=== PATIENT | female | born 1990 | race Caucasian/White ===

== ENCOUNTER 2020-04-06 09:54 | Outpatient (REF) | payer OTHER, SELFPAY ==
[2020-04-06 12:22] LABS: Hemoglobin 13.8 g/dl (12.0-16.0)
[2020-04-06 12:24] LABS: Hematocrit 42.1 % (37-47); Mean Corpuscular HGB Conc 32.8 g/dl (31.0-35.0); Mean Corpuscular Hemoglobin 33.1 pg (27.0-33.0); Mean Platelet Volume 13.8 fL (9.4-12.3); PLT CLUMP 1; Red Blood Count 4.17 X10*6/uL (4.20-5.50); Red Cell Distribution Width 12.5 % (11.0-16.0)
[2020-04-06 12:29] LABS: PLT ABN DIST 1
[2020-04-06 12:44] LABS: Alanine Aminotransferase 16 U/L (0-31); Aspartate Amino Transferase 14 U/L (5-31); Cholesterol 148 mg/dL; Glucose Fasting 92 mg/dL (60-99); HDL Cholesterol 47 mg/dL; LDL Cholesterol Calculated 86 mg/dl; Triglycerides 79 mg/dL
[2020-04-06 13:42] LABS: White Blood Count 10.1 X10*3/uL (4.8-10.8)
== END 2020-04-06 09:55 | disposition home or self-care (01) ==
LOC: HO.LAB 09:54
PROVIDERS: PCP Internal Medicine; Visit Provider Internal Medicine
DX: Z00.01 Encounter for general adult medical examination with abnormal findings (principal)
CPT/HCPCS: 36415; 80061; 82947; 84450; 84460; 85027

== ENCOUNTER 2020-06-03 15:33 | Outpatient (REF) | payer OTHER, SELFPAY | END 2020-06-03 15:34 | disposition home or self-care (01) | LOC: HO.LAB 15:33 | PROVIDERS: Visit Provider Internal Medicine | DX: Z20.828 Contact with and (suspected) exposure to other viral communicable diseases (principal) | CPT/HCPCS: C9803; U0003 ==

== ENCOUNTER 2020-07-28 13:23 | Outpatient (REF) | payer OTHER, SELFPAY ==
[2020-07-28 16:40] LABS: Hemoglobin 14.2 g/dl (12.0-16.0); MANUAL DIFF FLAG SCAN; Neutrophils Absolute Auto 5.5 X10*3/uL (2.0-8.3); SCAN SMEAR FLAG 1
[2020-07-28 16:41] LABS: Basophils Percent Auto 0.4 % (0-2); Eosinophils Absolute Auto 0.1 X10*3/uL (0.0-0.4); Eosinophils Percent Auto 0.7 % (0-4); Hematocrit 44.3 % (37-47); Imm Gran Abs Auto 0.04 X10*3/uL (0.00-0.03); Imm Gran Pct Auto 0.4 % (0.0-0.4); Lymphocytes Absolute Auto 2.8 X10*3/uL (1.2-4.9); Lymphocytes Percent Auto 31.5 % (20-40); Mean Corpuscular HGB Conc 32.1 g/dl (31.0-35.0); Mean Corpuscular Hemoglobin 33.1 pg (27.0-33.0); Mean Corpuscular Volume 103.3 fL (80-98); Monocytes Absolute Auto 0.5 X10*3/uL (0.1-1.2); Monocytes Percent Auto 5.4 % (2-11); Neutrophils Percent Auto 61.6 % (45-73); PLT CLUMP 1; Red Blood Count 4.29 X10*6/uL (4.20-5.50); Red Cell Distribution Width 12.8 % (11.0-16.0)
[2020-07-28 16:44] LABS: PLT ABN DIST 1
[2020-07-28 17:54] LABS: SLIDE REVIEW VERIFIED
[2020-07-29 04:20] LABS: Monotest Negative (Negative)
[2020-07-29 05:22] LABS: EBV-NA IgG Index >600.00 U/mL; EBV-VCA IgG Ab >750.00 U/mL; EBV-VCA IgM Ab <36.00 U/mL
== END 2020-07-28 13:24 | disposition home or self-care (01) ==
LOC: HO.HMGCLDS 13:23
PROVIDERS: PCP Internal Medicine; Visit Provider Nurse Practitioner Family
DX: D75.89 Other specified diseases of blood and blood-forming organs (principal); J02.9 Acute pharyngitis, unspecified
CPT/HCPCS: 36415; 85025; 86308; 86664; 86665; 87071; 87147

== ENCOUNTER 2020-10-13 09:38 | Outpatient (REF) | payer OTHER, SELFPAY ==
[2020-10-13 11:33] LABS: Basophils Percent Auto 0.4 % (0-2); Eosinophils Absolute Auto 0.1 X10*3/uL (0.0-0.4); Eosinophils Percent Auto 0.6 % (0-4); Hematocrit 42.6 % (37-47); Hemoglobin 13.9 g/dl (12.0-16.0); Imm Gran Abs Auto 0.04 X10*3/uL (0.00-0.03); Imm Gran Pct Auto 0.4 % (0.0-0.4); Lymphocytes Absolute Auto 2.1 X10*3/uL (1.2-4.9); Lymphocytes Percent Auto 19.8 % (20-40); MANUAL DIFF FLAG SCAN; Mean Corpuscular HGB Conc 32.6 g/dl (31.0-35.0); Mean Corpuscular Hemoglobin 33.2 pg (27.0-33.0); Mean Corpuscular Volume 101.7 fL (80-98); Mean Platelet Volume 13.3 fL (9.4-12.3); Monocytes Absolute Auto 0.4 X10*3/uL (0.1-1.2); Monocytes Percent Auto 4.2 % (2-11); Neutrophils Absolute Auto 7.7 X10*3/uL (2.0-8.3); Neutrophils Percent Auto 74.6 % (45-73); PLT CLUMP 1; Red Blood Count 4.19 X10*6/uL (4.20-5.50); Red Cell Distribution Width 12.5 % (11.0-16.0); SCAN SMEAR FLAG 1
[2020-10-13 11:59] LABS: White Blood Count 10.3 X10*3/uL (4.8-10.8)
[2020-10-13 12:02] LABS: SLIDE REVIEW VERIFIED
[2020-10-13 12:06] LABS: Alanine Aminotransferase 26 U/L (0-31); Albumin Level 4.5 g/dL (3.5-5.0); Alkaline Phosphatase 79 U/L (39-117); Anion Gap 14 (12-20); Aspartate Amino Transferase 19 U/L (5-31); Bilirubin Total 0.5 mg/dL (0.0-1.0); Blood Urea Nitrogen 12 mg/dL (9-16); Calcium 9.8 mg/dL (8.4-10.2); Carbon Dioxide 25 mmol/L (22-29); Chloride 107 mmol/L (96-108); Estimated Glomerular Filt Rate > 60; Glucose Fasting 90 mg/dL (60-99); Potassium 4.5 mmol/L (3.3-5.1); Sodium 141 mmol/L (135-145); Total Protein 7.6 g/dL (6.5-8.0)
[2020-10-13 12:14] LABS: HCG Quantitative < 2 mIU/mL; TSH reflex Free T4 0.47 uIU/mL (0.32-4.0)
== END 2020-10-13 09:39 | disposition home or self-care (01) ==
LOC: HO.HMGCLDS 09:38
PROVIDERS: Visit Provider Hospitalist
DX: R53.83 Other fatigue (principal)
CPT/HCPCS: 36415; 80053; 84443; 84702; 85025

== ENCOUNTER → 2020-10-26 11:16 | Outpatient (BNVA) | payer OTHER, SELFPAY | PROVIDERS: Visit Provider Advanced Practice Midwife ==

== ENCOUNTER → 2020-12-06 11:18 | Outpatient (BNVA) | payer OTHER, SELFPAY | PROVIDERS: PCP Hospitalist; Visit Provider Advanced Practice Midwife ==

== ENCOUNTER 2022-06-23 11:02 | Outpatient (REF) | payer OTHER, SELFPAY ==
[2022-06-23 14:11] LABS: MANUAL DIFF FLAG NO
[2022-06-23 14:19] LABS: Basophils Absolute Auto 0.1 X10*3/uL (0.0-0.2); Basophils Percent Auto 0.6 % (0-2); Eosinophils Absolute Auto 0.1 X10*3/uL (0.0-0.4); Eosinophils Percent Auto 0.7 % (0-4); Hematocrit 39.9 % (37.0-47.0); Hemoglobin 13.4 g/dl (12.0-16.0); Imm Gran Abs Auto 0.04 X10*3/uL (0.00-0.03); Imm Gran Pct Auto 0.4 % (0.0-0.4); Lymphocytes Absolute Auto 2.9 X10*3/uL (1.2-4.9); Lymphocytes Percent Auto 26.6 % (20-40); Mean Corpuscular HGB Conc 33.6 g/dl (31.0-35.0); Mean Corpuscular Hemoglobin 33.7 pg (27.0-33.0); Mean Corpuscular Volume 100.3 fL (80.0-98.0); Mean Platelet Volume 12.9 fL (9.4-12.3); Monocytes Absolute Auto 0.5 X10*3/uL (0.1-1.2); Monocytes Percent Auto 4.9 % (2-11); Neutrophils Absolute Auto 7.3 x10*3/uL (2.0-8.3); Neutrophils Percent Auto 66.8 % (45-73); Platelet Count 113 X10*3/uL (160-400); Red Blood Count 3.98 X10*6/uL (4.20-5.50); Red Cell Distribution Width 12.6 % (11.0-16.0); White Blood Count 10.9 X10*3/uL (4.8-10.8)
[2022-06-23 14:52] LABS: Alanine Aminotransferase 15 U/L (0-31); Aspartate Amino Transferase 15 U/L (5-31); Cholesterol 159 mg/dL; HDL Cholesterol 44 mg/dL; LDL Cholesterol Calculated 102 mg/dl; Triglycerides 68 mg/dL; Vitamin D 25-OH Total 17.2 ng/mL (>30)
[2022-06-28 19:18] LABS: HPV mRNA E6/E7 rflx Not Detected (Not Detected)
== END 2022-06-23 11:03 | disposition home or self-care (01) ==
LOC: HO.HMGCLDS 11:02
PROVIDERS: PCP Internal Medicine; Visit Provider Internal Medicine
DX: Z00.01 Encounter for general adult medical examination with abnormal findings (principal); Z12.4 Encounter for screening for malignant neoplasm of cervix; Z11.51 Encounter for screening for human papillomavirus (HPV)
CPT/HCPCS: 36415; 80061; 82306; 84450; 84460; 85025; 87624; 88142

== ENCOUNTER 2023-04-25 20:05 | Emergency (ER) | payer OTHER, SELFPAY ==
[2023-04-25 20:35] VITALS: BP 134/71; PULSE 75; RESP 20; TEMP 36.8; O2SAT 97; BMI 29.5
--- NOTE | 2023-04-25 20:38 | ED_ITS ---
HPI - General Adult General Chief complaint: Animal Bite Stated complaint: dog bite Time Seen by Provider: 04/25/23 21:01 Source: patient Mode of arrival: ambulatory Limitations: no limitations History of Present Illness HPI narrative: Patient comes to the emergency room complaining of dog bite. According to the patient, this was a friend's dog. Patient went to use the restroom, the dog was in the hallway in the house, patient thought that the dog is friendly, decided bit him but the dog bit her. Patient states that she does not remember when she had her Tdap. Patient's dog is fully immunized. Related Data Home Medications Medication Instructions Recorded Confirmed adapalene 0.1 % topical gel 1 appl topical BEDTIME 06/23/22 09/26/22 (Differin) Previous Rx's Medication Instructions Recorded cholecalciferol (vitamin D3) 1,250 1,250 mcg PO QWEEK 3 months #13 06/23/22 mcg (50,000 unit) capsule caps amoxicillin 875 mg-potassium 1 tab PO Q12H 7 days #14 tabs 09/26/22 clavulanate 125 mg tablet prednisone 20 mg tablet 40 mg (2 x 20 mg) PO DAILY 4 days 09/26/22 #8 tabs amoxicillin 500 mg-potassium 1 tab PO BID #13 tabs 04/25/23 clavulanate 125 mg tablet (Augmentin) ibuprofen 600 mg tablet 600 mg PO QID PRN fever or pain 04/25/23 #14 tabs Allergies Allergy/AdvReac Type Severity Reaction Status Date / Time No Known Allergies Allergy Verified 04/25/23 20:35 Review of Systems Review of Systems: Constitutional : No Weight loss, No Fever, No Chills, No Night Sweats, No Fatigue, No Malaise ENT/Mouth : No Hearing loss, No Ear Pain, No Nasal Congestion, No Sinus Pain, No Hoarseness, No sore throat, No Rhinorrhea, No Swallowing Difficulty Eyes: No Eye Pain, No Swelling, No Redness, No Foreign Body, No Discharge, No Vision Changes Cardiovascular : No Chest Pain, No SOB, No Dyspnea on Exertion, No Orthopnea, No Edema, No Palpitations Respiratory : No Cough, No Sputum, No Wheezing, No Smoke Exposure, No Dyspnea Gastrointestinal : No Nausea, No Vomiting, No Diarrhea, No Constipation, No abdominal Pain, No Hematochezia, No Melena Genitourinary : no irregular bleeding, No Dysuria, No Urinary Frequency, No Hematuria, No Urinary Incontinence, No Urgency, No Flank Pain, No Urinary Flow Changes, No Hesitancy Musculoskeletal : No joint pain, No Myalgias, No Joint Swelling Skin : Complaining of a dog bite to the right thumb Neuro : No Weakness, No Numbness, No Paresthesias, No Loss of Consciousness, No Dizziness, No Headache Psych : No Anxiety/Panic, No Depression, No SI/HI/AH/VH, No Social Issues, Heme/Lymph: No Bruising, No Bleeding,No Lymphadenopathy Endocrine : No Polyuria, No Polydipsia, No Temperature Intolerance [facility], [facility] Past Medical History Medical History Cigarette smoker one half pack a day or less Cervical cancer screening Acne Annual visit for general adult medical examination with abnormal findings Recurrent streptococcal tonsillitis Allergic rhinitis Genital herpes Surgical History History of incision and drainage Hx of LASIK Family History Family History Father Colon cancer Substance use disorder Mother Asthma Sister Cervical cancer Brother No problems noted. Sister No problems noted. Sister No problems noted. Social History Social History Housing: Apartment Alcohol intake: current Alcohol intake frequency: holidays/special occasions only Patient Tobacco Use Status: Current everyday Tobacco user Cigarette Packs Per Day: 0.5 Cigarettes Per Day: 10 Years Smoked: 13 Smoked in Last 30 Days: No e-Cigarette/Vaping Use: Never Used Advance Directives: No Advance Directives Information Provided: Yes Current occupational status: employed Sexual orientation: Straight/Heterosexual Gender identity: Female Cognitive needs: No Hearing needs: No Vision needs: No Physical Exam ED Vital Signs: Vital Signs - 24 hr 04/25/23 20:35 Temperature 98.3 F Pulse Rate 75 Respiratory Rate 20 Blood Pressure 134/71 Pulse Oximetry 97 Oxygen Delivery Method Nasal Cannula BMI result Body Mass Index 29.5 Const Other: Appearance: Alert. Oriented X3. No acute distress. Eyes: Pupils equal, round and reactive to light. ENT: Pharynx normal. Neck: Normal inspection. Neck supple. No lymph nodes noted. No crepitus CVS: Normal heart rate and rhythm. Pulses normal. Normal S1 and S2 Respiratory: No respiratory distress. Breath sounds normal. No Wheezing. No rales Abdomen: Soft and nontender. No rigidity. No distention. Skin: Skin warm and dry. Normal skin color. patient has 2 puncture wounds to the right thumb Extremities: No lower extremity edema. No Lacerations. No Rash Neuro: Oriented X 3. No motor deficit. No sensory deficit. Moving all extremities. No slurred speech. CN 2 through 12 grossly intact Psych: calm, cooperative, normal affect Course Course Course Narrative: RME: 32 yold female presents to the ED for right thumb dog bite. Dog belongs to a friend. Friend said dog uptodate witih rabies. unknown of last tdap Medications Administered Discontinued Medications Generic Name Dose Route Start Last Admin Trade Name Freq PRN Reason Stop Dose Admin Amoxicillin/Clavulanate Potassium 875 mg 04/25/23 21:13 04/25/23 21:21 Amoxicillin/Potassium Clav 875 Mg Tablet PO 04/25/23 21:14 875 mg ONCE ONE Administration Diphtheria/Tetanus/Acell Pertussis 0.5 ml 04/25/23 21:13 04/25/23 21:21 Diphth,Pertus(Acell),Tet Adult 0.5 Ml Syringe IM 04/25/23 21:14 0.5 ml .ONCE ONE Administration Medical Decision Making Medical Decision Making [facility] Narrative: -dog is known to be fully immunized -patient receive a dose of Tdap in the emergency room in 1st dose of Augmentin. -I discussed with the patient when to return to the emergency room p.r.n. infection Differential Diagnosis Differential Diagnoses: The differential diagnosis associated with the presentation includes (Dog bite, puncture wound) Discharge Plan Discharge Clinical Impression: Dog bite Patient Disposition: Home, Self-Care Instructions: Animal Bite (ED) Additional Instructions: Please follow-up with your primary care physician tomorrow. If you have any worsening or new symptoms, please return to the emergency room or call 911 Prescriptions: New amoxicillin-pot clavulanate [Augmentin] 500-125 mg tablet 1 tab PO BID Qty: 13 0RF ibuprofen 600 mg tablet 600 mg PO QID PRN (Reason: fever or pain) Qty: 14 0RF No Action cholecalciferol (vitamin D3) 1,250 mcg (50,000 unit) capsule 1,250 mcg PO QWEEK 90 Days Qty: 13 0RF prednisone 20 mg tablet 40 mg PO DAILY 4 Days Qty: 8 0RF amoxicillin-pot clavulanate 875-125 mg tablet 1 tab PO Q12H 7 Days Qty: 14 0RF adapalene [Differin] 0.1 % gel 1 appl topical BEDTIME Interventions: ED Discharge Assessment Last Done: 04/25/23 21:32 Discharge Date/Time: 04/25/23 21:40
[2023-04-25] MEDS: Diphth,Pertus(ACell),Tet Adult 0.5 ML SYRINGE IM (21:21)
[2023-04-25] MEDS: Amoxicillin/Potassium Clav 875 MG TABLET PO (21:21)
== END 2023-04-25 21:40 | disposition home or self-care (01) ==
LOC: HO.ED 21:39
PROVIDERS: Emergency Provider Emergency Medicine; PCP Internal Medicine
DX: S61.051A Open bite of right thumb without damage to nail, initial encounter (principal); W54.0XXA Bitten by dog, initial encounter; Y93.89 Activity, other specified; Y92.9 Unspecified place or not applicable; Y99.9 Unspecified external cause status
CPT/HCPCS: 90471; 90715; 99284

== ENCOUNTER 2023-06-26 08:04 | Outpatient (AMB) | payer OTHER, SELFPAY ==
[2023-06-26 08:07] VITALS: BP 108/74; PULSE 98; O2SAT 98; BMI 31.2
--- NOTE | 2023-06-26 08:07 | A.OFFPC_ITS ---
Vital Signs 06/26/23 08:07 Height 5 ft 4 in Weight 182 lb BMI 31.2 BP 108/74 Blood Pressure Location Rt brachial Position Sitting Pulse 98 Pulse Source Pulse Oximeter Pulse Oximetry (%) 98 Oxygen Delivery Method Room Air Intake Visit Reasons: Physical exam Intake Note: Pt is here today for her PE Is last menstrual period known: Yes Last menstrual period: 06/19/23 Allergies No Known Allergies Allergy (Verified 06/26/23 08:25) Medication List - Last Reconciled 06/26/23 by Indu Arriaga MD No Known Home Meds Tobacco use date assessed: 06/26/23 Dental Screening Dental Screen Date: 06/26/23 Did you have a dental visit in the last 12 months?: Yes Did you have a dental problem in the last 6 months where you did not have access to dental care?: No Was dental information given to patient?: Patient has dentist HPI Physical exam HPI Details 32-year-old lady with obesity, and seaso nal allergies, here today for her physical exam. She is up-to-date with her cervical cancer screening, last done 2021 with unremarkable findings except for presence of active vaginosis which was already treated. She has had her COVID vaccination and booster, as well as her flu shot , and is up-to-date with her Tdap.. Quit smoking 7 months ago, cold turkey. She however has gained some weight since last visit, has been eating a lot of junk food [facility] Medical History (Updated 06/26/23 @ 08:39 by Indu Arriaga MD) Obesity (BMI 30.0-34.9) Former moderate cigarette smoker (10-19 per day) Cervical cancer screening Acne Annual visit for general adult medical examination with abnormal findings Recurrent streptococcal tonsillitis Allergic rhinitis Genital herpes Surgical History History of incision and drainage Hx of LASIK Family History Father Colon cancer Substance use disorder Mother Asthma Sister Cervical cancer Brother No problems noted. Sister No problems noted. Sister No problems noted. Social History Housing: Apartment Alcohol intake: current Alcohol intake frequency: holidays/special occasions only Patient Tobacco Use Status: Former Tobacco user Cigarette Packs Per Day: 0.5 Cigarettes Per Day: 10 Years Smoked: 13 e-Cigarette/Vaping Use: Never Used Current occupational status: employed Sexual orientation: Straight/Heterosexual Gender identity: Female Cognitive needs: No Hearing needs: No Vision needs: No Female Reproductive History Menstrual Date of last menstrual period: 06/19/23 Questionnaire PHQ-9 Over the last 2 weeks, how often have you been bothered by any of the following problems? 1. Little interest or pleasure in doing things: not at all 2. Feeling down, depressed, or hopeless: not at all 3. Trouble falling or staying asleep, or sleeping too much: not at all 4. Feeling tired or having little energy: not at all 5. Poor appetite or overeating: not at all 6. Feeling bad about yourself - or that you are a failure or have let yourself or your family down: not at all 7. Trouble concentrating on things, such as reading the newspaper or watching television: not at all 8. Moving or speaking so slowly that other people could have noticed. Or the opposite - being so fidgety or restless that you have been moving around a lot more than usual: not at all 9. Thoughts that you would be better off or of hurting yourself in some way: not at all Total score: 0 Depression Screening Interpretation: Negative Depression Screening Done: Yes 78751 - PHQ-9 Billing: Yes Source: Developed by Drs. Aly Gilman, Rohini Gao, Richard Garnica and colleagues, with an educational toni from [employer]. Thrive Questionnaire Date Thrive assessed: 06/26/23 I am a: Patient What is your living situation today?: I have a steady place to live Within the past 12 months, did the food you bought not last and you didn't have the money to get more?: Never true Within the past 12 months, did you worry whether your food would run out before you got money to buy more?: Never true Do you have trouble paying for medicines?: No Do you have trouble getting transportation to medical appointments?: No Do you have trouble paying your heating and electricity bill?: No Do you have trouble taking care of your child, family member or friend?: No Do you have trouble with day-to-day activities such as bathing, preparing meals, shopping, managing finances, etc.?: No Are you currently unemployed and looking for a job?: No Are you interested in more education?: No AUDIT C Alcohol Use Questionnaire (AUDIT-C) 1. How often do you have a drink containing alcohol?: Monthly or less 2. How many drinks containing alcohol do you have on a typical day when you are drinking?: 1 or 2 3. How often do you have six or more drinks on one occasion?: Never Total Score: 1 STEPHANIE-7 AMB Questionnaire STEPHANIE-7 Date STEPHANIE - 7 assessed: 06/26/23 Feeling nervous, anxious, or on edge: 0 = Not at all Not being able to stop or control worryin = Not at all Worrying too much about different things: 0 = Not at all Trouble relaxin = Not at all Being so restless that it is hard to sit still: 0 = Not at all Becoming easily annoyed or irritable: 0 = Not at all Feeling afraid as if something awful might happen: 0 = Not at all Total STEPHANIE-7 score (0-4 normal; 5-9 mild; 10-14 moderate; 15-21 severe): 0 Source: Developed by Drs. Aly Gilman, Rohini Gao, Richard Garnica and colleagues, with an educational toni from [employer]. STEPHANIE-7 Assessment Billing STEPHANIE-7 Assessment Tool: STEPHANIE-7 Assessment 17702 Review of Systems Const Denies body aches, Denies fever(s), Denies headache(s) and Denies malaise Eyes Details: Goes to [facility] eyecare Denies change in vision ENT Reports as per HPI, Denies dizziness, Denies ear discharge, Denies headache(s), Denies hoarseness, Denies epistaxis, Denies tinnitus, Denies sinus pain and Denies sinus pressure Card Denies chest pain, Denies irregular heart rhythm, Denies lightheadedness and Denies dyspnea Resp Denies cough and Denies dyspnea GI Reports no additional complaints Reports no additional complaints Musc Reports no additional complaints Skin/Breast Denies breast pain, Reports breast mass, Denies lesions and Denies rash Neuro Reports no additional complaints, Denies dizziness and Denies headache(s) Psych Reports no additional complaints Endo Reports no additional complaints Isreal/Lymph Reports no additional complaints Aller/Immun Reports no additional complaints Physical exam (Primary Care) Vital Signs: Last Vital Signs Pulse 98 06/26/23 08:07 BP 108/74 06/26/23 08:07 Pulse Ox 98 06/26/23 08:07 Oxygen Delivery Method Room Air 06/26/23 08:07 BMI result Body Mass Index 31.2 Tobacco/Smoking Status: Tobacco use Status Tobacco use date assessed 06/26/23 06/26/23 08:15 Patient Tobacco Use Status Former Tobacco user 06/26/23 08:15 e-Cigarette/Vaping Use Never Used 06/26/23 08:15 PHQ-9: PHQ-9 Score PHQ-9: Total score 0 06/26/23 08:15 Depression Screening Interpretation: Negative Thrive Assessment: Date of Thrive Assessment Date Thrive assessed 06/26/23 06/26/23 08:15 Const General: healthy appearing and comfortable Nutritional Appearance: obese Orientation/consciousness: patient oriented x3 HENMT Head: Yes normocephalic Ears: hearing grossly normal bilaterally, external ears normal, TM's normal bilaterally and EAC's normal General nose exam: Normal external nose present Face and sinus: Yes face symmetric Mouth: Normal oral and palatal mucosa present and moist mucous membranes Eyes General: appearance normal, both eyes and all related structures Neck Neck: Yes full ROM, Yes no lymphadenopathy and Yes supple Chest Chest palpation & inspection: normal inspection of the chest and other (Nipple ring left) Breast/axilla inspection: normal inspection of the breasts Breast/axilla palpation: normal palpation of the breasts and normal palpation of the axillae Resp Effort & Inspection: normal respiratory effort and able to speak in complete sentences Auscultation: clear to auscultation bilaterally Cardio Rate: regular rate Rhythm: regular rhythm Heart sounds: S1 normal heart sound present and S2 normal heart sound present GI Inspection: Yes normal to inspection Palpation (GI): Soft to palpation, nontender, no guarding and no hernias Auscultation: normal bowel sounds General: Yes no CVA tenderness and Yes deferred (Up-to-date with her last cervical cancer screening and pelvic exam, done 20) Back/Spine/Pelvis Back: no CVA tenderness and No back tenderness Skin Other: All tattoos present on upper arms Neuro General: patient oriented x3, gait normal, tone normal, moves all extremities, no focal motor deficits and CN's II-XI intact bilaterally Extrem General: Yes full ROM, Yes no joint enlargement, Yes no calf tenderness and Yes normal gait Psych Appearance: grossly normal and well kempt Mental Status: mental status grossly normal Speech and movement: Normal speech and movement present and Clear speech present Affect: normal affect Attitude: cooperative Thought content: Normal thought content present Results Reviewed Results Reviewed: Name: Jamee Zuñiga Age/Sex: 31/F : 1990 Unit#: [id number] Attend Dr: Indu Arriaga MD Re06/23/22 Status: DEP REF Location: [facility] Disch: SPEC : [id number] BRAD: 06/23/22 STATUS: COMP REQ : [id number] RECD: 06/23/[address]: Indu Arriaga MD COMP: 06/23/22 ENTERED: 06/23/[address] [facility] [address]: ORDERED: CBC Auto Diff Test Result Flag Reference Site WBC 10.9 H 4.8-10.8 X10*3/uL RBC 3.98 L 4.20-5.50 X10*6/uL HGB 13.4 12.0-16.0 g/dl HCT 39.9 37.0-47.0 % MCV 100.3 H 80.0-98.0 fL MCH 33.7 H 27.0-33.0 pg MCHC 33.6 31.0-35.0 g/dl RDW 12.6 11.0-16.0 % PLT 113 L 160-400 X10*3/uL MPV 12.9 H 9.4-12.3 fL Neut Pct Auto 66.8 45-73 % ImGran Pct Auto 0.4 0.0-0.4 % Lymp Pct Auto 26.6 20-40 % Redwood Pct Auto 4.9 2-11 % Eos Pct Auto 0.7 0-4 % Baso Pct Auto 0.6 0-2 % NRBC Pct Auto 0.0 0.0-0.2 /100WBC ANC Neut Abs # 7.3 2.0-8.3 x10*3/uL ImGran Abs Auto 0.04 H 0.00-0.03 X10*3/uL Lymph Abs Auto 2.9 1.2-4.9 X10*3/uL Redwood Abs Auto 0.5 0.1-1.2 X10*3/uL Eos Abs Auto 0.1 0.0-0.4 X10*3/uL Baso Abs Auto 0.1 0.0-0.2 X10*3/uL NRBC Abs Auto 0.000 0.0-0.012 X10*3/uL Name: Jamee Zuñiga Age/Sex: 31/F : 1990 Unit#: [id number] Attend Dr: Indu Arriaga MD Re06/23/22 Status: DEP REF [facility] Disch: SPEC : [id number] BRAD: 06/23/22 STATUS: COMP REQ : [id number] RECD: 06/23/[address]: Indu Arriaga MD COMP: 06/23/22145 ENTERED: 06/23/[address]: ORDERED: AST, ALT, Lipid Panel, Vitamin D 25-OH Test Result Flag Reference Site AST (GOT) 15 5-31 U/L ALT (GPT) 15 0-31 U/L Triglyceride 68 mg/dL Desirable Triglyceride: less than 150 mg/dL Borderline High Triglyceride 150-199 mg/dL High Triglyceride: 200-499 mg/dL Very High Triglyceride: greater than or equal to 5OO mg/dL Chol 159 mg/dL Desirable Cholesterol: less than 200 mg/dL Borderline High Cholesterol: 200-239 mg/dL High Cholesterol: greater than 239 mg/dL LDL Calculated 102 mg/dl Desirable LDL: less than 100 mg/dL Near Optimal/Above Optimal LDL: 110-129 mg/dL Borderline High LDL: 130-159 mg/dL High LDL: 160-189 mg/dL Very High LDL: greater than or equal to 190 mg/dL HDL 44 mg/dL Desirable HDL: greater than 40 mg/dL Note: This HDL assay may give artificially low results in patients with liver disease. Vit D 25-OH Tot 17.2 >30 ng/mL Health Based Reference Values* < 20 ng/mL Deficient 20-30 ng/mL Insufficient > 30 ng/mL Sufficient *Mamadou MEJIA. N Engl J Med. 2007;[id number] Assessment and Plan Assessment & Plan (1) Annual visit for general adult medical examination with abnormal findings: Code(s): Z00.01 - Encounter for general adult medical examination with abnormal findings Plan: Will check appropriate labs. Continue regular dental visit every 6 months and regular eye exams, at least every 2 years. Take adequate calcium in diet and vitamin-D 3 at 2000 IU per cap once a day, in addition to weight-bearing exercises to help maintain good muscle tone and weight control. Instructed to do self-breast exam, and recommended to get yearly mammogram, starting at age 40. Up-to-date with her cervical cancer screening, last done 2021 up-to-date with all her vaccinations getting her COVID booster and flu shot (2) Obesity (BMI 30.0-34.9): Code(s): E66.9 - Obesity, unspecified Plan: Recommended focusing on improving your health instead of dieting. : Eat Mediterranean diet, limit foods high in fat, sugar, and calories, eat slowly, pay attention to portion sizes, plan your meals ahead of time, start regular physical activity 150 minutes of moderate intensity exercise or 90 minutes/week of vigorous exercise and increase water intake. Orders: Orders Alanine Aminotransferase Today E66.9 - Obesity, unspecified, Z00.01 - Encounter for general adult medical examination with abnormal findings, Z87.891 - Personal history of nicotine dependence Aspartate Amino Transferase Today E66.9 - Obesity, unspecified, Z00.01 - Encounter for general adult medical examination with abnormal findings, Z87.891 - Personal history of nicotine dependence Basic Metabolic Panel Fasting Today E66.9 - Obesity, unspecified, Z00.01 - Encounter for general adult medical examination with abnormal findings, Z87.891 - Personal history of nicotine dependence Vitamin D 25-OH Total Today E66.9 - Obesity, unspecified, Z00.01 - Encounter for general adult medical examination with abnormal findings, Z87.891 - Personal history of nicotine dependence Lipid Panel Today E66.9 - Obesity, unspecified, Z00.01 - Encounter for general adult medical examination with abnormal findings, Z87.891 - Personal history of nicotine dependence Coding Level of Care Code Est Pt Prev Care 18-39y([id number]) Diagnoses Annual visit for general adult medical examination with abnormal findings Z00.01 Obesity (BMI 30.0-34.9) E66.9 Additional Codes STEPHANIE-7 Assessment Billing - STEPHANIE-7 Assessment Tool: STEPHANIE-7 Assessment [id number] ([id number])
== END 2023-06-26 10:11 | disposition home or self-care (01) ==
PROVIDERS: Visit Provider Internal Medicine
DX: Z00.00 Encounter for general adult medical examination without abnormal findings (principal); E66.9 Obesity, unspecified; Z68.31 Body mass index [BMI] 31.0-31.9, adult
CPT/HCPCS: 99395

== ENCOUNTER 2023-06-26 08:42 | Outpatient (REF) | payer OTHER, SELFPAY ==
[2023-06-26 11:47] LABS: Alanine Aminotransferase 40 U/L (0-31); Anion Gap 15 (12-20); Aspartate Amino Transferase 26 U/L (5-31); Blood Urea Nitrogen 15 mg/dL (9-16); Calcium 9.7 mg/dL (8.4-10.2); Carbon Dioxide 26 mmol/L (22-29); Chloride 106 mmol/L (96-108); Cholesterol 161 mg/dL (<200); Estimated Glomerular Filt Rate > 60; Glucose Fasting 91 mg/dL (60-99); HDL Cholesterol 52 mg/dL (>40); LDL Cholesterol Calculated 92 mg/dL (<100); Potassium 3.8 mmol/L (3.3-5.1); Sodium 143 mmol/L (135-145); Triglycerides 86 mg/dL (<150)
[2023-06-26 12:02] LABS: Vitamin D 25-OH Total 51.9 ng/mL (>30)
== END 2023-06-26 08:43 | disposition home or self-care (01) ==
LOC: HO.HMGCLDS 08:42
PROVIDERS: PCP Internal Medicine; Visit Provider Internal Medicine
DX: Z00.01 Encounter for general adult medical examination with abnormal findings (principal); E66.9 Obesity, unspecified; Z87.891 Personal history of nicotine dependence
CPT/HCPCS: 36415; 80048; 80061; 82306; 84450; 84460

== ENCOUNTER 2024-02-18 08:32 | Outpatient (AMB) | payer OTHER, SELFPAY ==
[2024-02-18 08:35] VITALS: BP 110/84; PULSE 98; TEMP 37.6; O2SAT 98; BMI 34.3
--- NOTE | 2024-02-18 08:35 | AM.OFFWIN_ITS ---
Intake Vital Signs 02/18/24 08:35 Height 5 ft 4 in Weight 200 lb BMI 34.3 BP 110/84 Blood Pressure Location Rt brachial Position Sitting Pulse 98 Pulse Source Pulse Oximeter Temp 99.7 F Temp Source Oral Pulse Oximetry (%) 98 Oxygen Delivery Method Room Air Intake Visit Reasons: EP- Tonsils are large, body soreness Intake Note: Pt is here today c/o sore throat and bodyaches: Pt's co-worker tested positive for COVID-19 Patient Tobacco Use Status: Former Tobacco user Allergies No Known Allergies Allergy (Verified 02/18/24 08:39) HPI HPI Comments History of Present Illness Details Patient is a 33-year-old female complaining of 2 days of a sore throat, fevers and body aches. She states she had a fever and it came down with Tylenol. She notes her co-worker tested positive for COVID 3 days ago. She would also like to be tested for COVID today. She denies any trouble breathing, feeling short of breath, sinus pain or headaches FORMERLY [facility] Medical History (Updated 02/18/24 @ 09:12 by Kimberly Melo PA-C) Obesity (BMI 30.0-34.9) Former moderate cigarette smoker (10-19 per day) Cervical cancer screening Acne Annual visit for general adult medical examination with abnormal findings Recurrent streptococcal tonsillitis Allergic rhinitis Genital herpes Surgical History History of incision and drainage Hx of LASIK Family History Father Colon cancer Substance use disorder Mother Asthma Sister Cervical cancer Brother No problems noted. Sister No problems noted. Sister No problems noted. Social History Housing: Apartment Alcohol intake: current Alcohol intake frequency: holidays/special occasions only Patient Tobacco Use Status: Former Tobacco user Cigarette Packs Per Day: 0.5 Cigarettes Per Day: 10 Years Smoked: 13 e-Cigarette/Vaping Use: Never Used Current occupational status: employed Sexual orientation: Straight/Heterosexual Gender identity: Female Cognitive needs: No Hearing needs: No Vision needs: No Review of Systems Const All systems reviewed & are unremarkable except as noted in HPI and below Physical Exam Vital Signs: Last Vital Signs Temp 99.7 F 02/18/24 08:35 Pulse 98 02/18/24 08:35 BP 110/84 02/18/24 08:35 Pulse Ox 98 02/18/24 08:35 Oxygen Delivery Method Room Air 02/18/24 08:35 BMI result Body Mass Index 34.3 Const General: cooperative, healthy appearing, comfortable and no acute distress Orientation/consciousness: patient oriented x3 Limitations: no limitations HEENT Head: Yes normal to inspection Ears: hearing grossly normal bilaterally, external ears normal, TM's normal bilaterally and Abnormal EAC present (right side) erythema, edema and EAC tenderness General nose exam: Normal external nose present, Normal nares present and No nasal discharge present Face and sinus: Yes normal facial exam and Yes sinuses nontender Mouth: Normal oral and palatal mucosa present and moist mucous membranes Throat: Yes tonsils normal, Yes uvula midline and Yes posterior oropharynx abnormal (Erythema) Eyes General: appearance normal, both eyes and all related structures Neck Neck: Yes normal visual inspection Resp Effort & Inspection: normal respiratory effort, able to speak in complete sentences, Actively coughing, no respiratory distress, not tachypneic, no tripod positioning and no use of accessory muscles Skin General skin exam: no rashes or lesions noted Neuro General: patient oriented x3 Extrem General: Yes normal to inspection and Yes no clubbing, cyanosis or edema Results AMB Rapid Strep AMB Rapid Strep Positive Last Edit by Lawanda Riley CMA on 02/18/24 08:51 Results Reviewed Results Reviewed: Laboratory Last Values Strep Scn Rapid Clinic Positive 02/18/24 08:50 Assessment & Plan Assessment & Plan (1) Otitis externa: Code(s): H60.90 - Unspecified otitis externa, unspecified ear Qualifiers: Otitis externa type: swimmer's ear Chronicity: acute Laterality: right Qualified Code(s): H60.331 - Swimmer's ear, right ear Plan: Sent eardrops to pharmacy (2) Strep pharyngitis: Code(s): J02.0 - Streptococcal pharyngitis Plan: Rapid strep positive in office, Sent amoxicillin for pharmacy, patient did request Diflucan because in the past after she has taken amoxicillin, she is going to yeast infection. So I sent that as well COVID test pending Plan See above Orders: Orders AMB Rapid Strep Screen Today Z13.9 - Encounter for screening, unspecified SARS-CoV2/FLU/RSV Today J06.9 - Acute upper respiratory infection, unspecified Medications: New amoxicillin 500 mg PO BID 20 tabs 0RF fluconazole may repeat second dose 72 hrs after first dose if symptoms persist 150 mg PO Q3D 2 tabs 0RF 2 doses cwrzgutt-lcehvzzbo-MD 3.5-10,000-1 mg/mL-unit/mL-% 4 drps otic (ear) right Q8H 10 mL 0RF 7 days Coding Level of Care Code Est Pt Level 4 (58408) Diagnoses Acute swimmer's ear of right side H60.331 Otitis externa type: swimmer's ear Chronicity: acute Laterality: right Strep pharyngitis J02.0
== END 2024-02-18 09:04 | disposition home or self-care (01) ==
PROVIDERS: PCP Internal Medicine; Visit Provider Physician Assistant
DX: H60.331 Swimmer's ear, right ear (principal); J02.0 Streptococcal pharyngitis; Z13.9 Encounter for screening, unspecified
CPT/HCPCS: 87880; 99214

== ENCOUNTER 2024-02-18 09:14 | Outpatient (REF) | payer OTHER, SELFPAY ==
[2024-02-18 11:40] LABS: Influenza A PCR NEGATIVE (Negative); Influenza B PCR NEGATIVE (Negative); Resp Syncy Virus RNA Qual PCR NEGATIVE (Negative); SARS COV2 PCR INHOUSE NEGATIVE (Negative)
== END 2024-02-18 09:15 | disposition home or self-care (01) ==
LOC: HO.LAB 09:14
PROVIDERS: Visit Provider Physician Assistant
DX: J06.9 Acute upper respiratory infection, unspecified (principal)
CPT/HCPCS: 0241U

== ENCOUNTER 2024-07-03 14:11 | Outpatient (AMB) | payer OTHER, SELFPAY ==
[2024-07-03 14:15] VITALS: BP 110/70; PULSE 78; O2SAT 98; BMI 34.7
--- NOTE | 2024-07-03 14:15 | A.OFFPC_ITS ---
Vital Signs 07/03/24 14:15 Height 5 ft 4 in Weight 202 lb BMI 34.7 BP 110/70 Blood Pressure Location Rt brachial Position Sitting Pulse 78 Pulse Source Pulse Oximeter Pulse Oximetry (%) 98 Oxygen Delivery Method Room Air Intake Visit Reasons: Physical exam Intake Note: Pt is here today for her PE: last papsmear 06/27/22 Is last menstrual period known: Yes Last menstrual period: 06/26/24 Allergies No Known Allergies Allergy (Verified 07/03/24 14:51) Medication List - Last Reconciled 07/03/24 by Indu Arriaga MD No Known Home Meds Tobacco use date assessed: 07/03/24 Dental Screening Dental Screen Date: 07/03/24 Did you have a dental visit in the last 12 months?: Yes Did you have a dental problem in the last 6 months where you did not have access to dental care?: No Was dental information given to patient?: Patient has dentist HPI Physical exam HPI Details 33-year-old lady here today for physical exam . She has no specific complaints at present time except for difficulty with losing weight. She however states that she has not been following any strict diet, nor has she been engaging in any regular exercise. She is up-to-date with her cervical cancer screening and pelvic exam, last done in 2021 with negative findings. FORMERLY [facility] Medical History (Updated 07/03/24 @ 15:05 by Indu Arriaga MD) Obesity (BMI 30.0-34.9) Former moderate cigarette smoker (10-19 per day) Acne Annual visit for general adult medical examination with abnormal findings Recurrent streptococcal tonsillitis Allergic rhinitis Genital herpes Surgical History History of incision and drainage Hx of LASIK Family History Father Colon cancer Substance use disorder Mother Asthma Sister Cervical cancer Brother No problems noted. Sister No problems noted. Sister No problems noted. Social History Housing: Apartment Alcohol intake: current Alcohol intake frequency: holidays/special occasions only Patient Tobacco Use Status: Former Tobacco user Cigarette Packs Per Day: 0.5 Cigarettes Per Day: 10 Years Smoked: 13 e-Cigarette/Vaping Use: Never Used Current occupational status: employed Sexual orientation: Straight/Heterosexual Gender identity: Female Cognitive needs: No Hearing needs: No Vision needs: No Female Reproductive History Menstrual Date of last menstrual period: 06/26/24 Questionnaire PHQ-9 Over the last 2 weeks, how often have you been bothered by any of the following problems? 1. Little interest or pleasure in doing things: not at all 2. Feeling down, depressed, or hopeless: not at all 3. Trouble falling or staying asleep, or sleeping too much: not at all 4. Feeling tired or having little energy: not at all 5. Poor appetite or overeating: not at all 6. Feeling bad about yourself - or that you are a failure or have let yourself or your family down: not at all 7. Trouble concentrating on things, such as reading the newspaper or watching television: not at all 8. Moving or speaking so slowly that other people could have noticed. Or the opposite - being so fidgety or restless that you have been moving around a lot more than usual: not at all 9. Thoughts that you would be better off or of hurting yourself in some way: not at all Total score: 0 Depression Screening Interpretation: Negative Depression Screening Done: Yes 72085 - PHQ-9 Billing: Yes Source: Developed by Drs. Aly Gilman, Rohini Gao, Richard Garnica and colleagues, with an educational toni from [employer]. Thrive Questionnaire Date Thrive assessed: 07/03/24 I am a: Patient What is your living situation today?: I have a steady place to live Within the past 12 months, did the food you bought not last and you didn't have the money to get more?: Never true Within the past 12 months, did you worry whether your food would run out before you got money to buy more?: Never true Do you have trouble paying for medicines?: No Do you have trouble getting transportation to medical appointments?: No Do you have trouble paying your heating and electricity bill?: No Do you have trouble taking care of your child, family member or friend?: No Do you have trouble with day-to-day activities such as bathing, preparing meals, shopping, managing finances, etc.?: No Are you currently unemployed and looking for a job?: No Are you interested in more education?: No Please select the resources that you would like help with: None Currently or been in a relationship where the following occur: No concerns reported THRIVE Score: 0 AUDIT C Alcohol Use Questionnaire (AUDIT-C) 1. How often do you have a drink containing alcohol?: 2-4 times a month 2. How many drinks containing alcohol do you have on a typical day when you are drinking?: 3 or 4 3. How often do you have six or more drinks on one occasion?: Never Total Score: 3 STEPHANIE-7 AMB Questionnaire STEPHANIE-7 Date STEPHANIE - 7 assessed: 07/03/24 Feeling nervous, anxious, or on edge: 0 = Not at all Not being able to stop or control worryin = Not at all Worrying too much about different things: 0 = Not at all Trouble relaxin = Not at all Being so restless that it is hard to sit still: 0 = Not at all Becoming easily annoyed or irritable: 0 = Not at all Feeling afraid as if something awful might happen: 0 = Not at all Total STEPHANIE-7 score (0-4 normal; 5-9 mild; 10-14 moderate; 15-21 severe): 0 Source: Developed by Drs. Aly Gilman, Rohini Gao, Richard Garnica and colleagues, with an educational toni from [employer]. STEPHANIE-7 Assessment Billing STEPHANIE-7 Assessment Tool: STEPHANIE-7 Assessment 31890 Review of Systems Const Denies body aches, Denies fever(s) and Denies malaise Eyes Details: Goes to [facility] eyecare Denies change in vision ENT Reports as per HPI, Denies ear discharge, Denies hoarseness, Denies epistaxis, Denies tinnitus, Denies sinus pain and Denies sinus pressure Card Denies chest pain, Denies irregular heart rhythm, Denies lightheadedness and Denies dyspnea Resp Denies cough and Denies dyspnea GI Reports no additional complaints Reports no additional complaints Musc Reports no additional complaints Skin/Breast Denies breast pain, Reports breast mass, Denies lesions and Denies rash Neuro Reports no additional complaints Psych Reports no additional complaints Endo Reports no additional complaints Isreal/Lymph Reports no additional complaints Aller/Immun Reports no additional complaints Physical exam (Primary Care) Vital Signs: Last Vital Signs Pulse 78 07/03/24 14:15 BP 110/70 07/03/24 14:15 Pulse Ox 98 07/03/24 14:15 Oxygen Delivery Method Room Air 07/03/24 14:15 BMI result Body Mass Index 34.7 Tobacco/Smoking Status: Tobacco use Status Tobacco use date assessed 07/03/24 07/03/24 14:23 Patient Tobacco Use Status Former Tobacco user 07/03/24 14:15 e-Cigarette/Vaping Use Never Used 07/03/24 14:15 PHQ-9: PHQ-9 Score PHQ-9: Total score 0 07/06/24 21:19 Depression Screening Interpretation: Negative Thrive Assessment: Date of Thrive Assessment Date Thrive assessed 07/03/24 07/03/24 14:43 Currently or been in a relationship where the following occur: No concerns reported Advance Care Planning discussion: Completed/Scanned Date of discussion: 07/03/24 Who was present: patient Forms completed: Health Care Proxy Time spent: 16-45 minutes Actual minutes spent: 2 Const General: healthy appearing and comfortable Nutritional Appearance: obese Orientation/consciousness: patient oriented x3 HENMT Head: Yes normocephalic Ears: external ears normal, TM's normal bilaterally and EAC's normal General nose exam: Normal external nose present Face and sinus: Yes face symmetric Mouth: Normal oral and palatal mucosa present and moist mucous membranes Eyes General: appearance normal, both eyes and all related structures Neck Neck: Yes full ROM, Yes no lymphadenopathy and Yes supple Chest Chest palpation & inspection: normal inspection of the chest and other (Nipple ring left) Breast/axilla palpation: normal palpation of the breasts Resp Effort & Inspection: normal respiratory effort and able to speak in complete sentences Auscultation: clear to auscultation bilaterally Cardio Rate: regular rate Rhythm: regular rhythm Heart sounds: S1 normal heart sound present and S2 normal heart sound present GI Inspection: Yes normal to inspection Palpation (GI): Soft to palpation, nontender, no guarding and no hernias Auscultation: normal bowel sounds General: Yes no CVA tenderness Back/Spine/Pelvis Back: no CVA tenderness and No back tenderness Skin Other: All tattoos present on upper arms Neuro General: patient oriented x3, gait normal, tone normal, moves all extremities, no focal motor deficits and CN's II-XI intact bilaterally Extrem General: Yes full ROM, Yes no joint enlargement, Yes no calf tenderness and Yes normal gait Psych Appearance: grossly normal and well kempt Mental Status: mental status grossly normal Speech and movement: Normal speech and movement present and Clear speech present Affect: normal affect Attitude: cooperative Thought content: Normal thought content present Coding Level of Care Code Est Pt Prev Care 18-39y(31784) Diagnoses Annual visit for general adult medical examination with abnormal findings Z00.01 Obesity (BMI 30.0-34.9) E66.9 Advanced directives, counseling/discussion Z71.89 Additional Codes Vital Signs *Quality* - Advance Care Planning discussion: Completed/Scanned ([id number]) Vital Signs *Quality* - Time spent: 16-45 minutes ([id number]) PHQ-9 - 98278 - PHQ-9 Billing: Yes ([id number]) STEPHANIE-7 Assessment Billing - STEPHANIE-7 Assessment Tool: STEPHANIE-7 Assessment 22412 ([id number]) Assessment & Plan Assessment & Plan (1) Annual visit for general adult medical examination with abnormal findings: Code(s): Z00.01 - Encounter for general adult medical examination with abnormal findings Category: Medical Plan: Up-to-date with her cervical cancer screening, due again in 2026. Reinforced importance of following healthy diet and getting regular exercise. Fasting labs ordered. Patient declined getting flu vaccine or COVID booster, up-to-date with her Tdap (2) Obesity (BMI 30.0-34.9): Code(s): E66.9 - Obesity, unspecified Category: Medical Plan: Reminded again to adhere to healthy diet, avoid junk, start exercising at least 30 minutes on a daily basis. (3) Advanced directives, counseling/discussion: Code(s): Z71.89 - Other specified counseling Plan: Initiated the conversation about Advanced Directives. Advanced Directives help patients prepare for current and future decisions about their medical treatment and place of care. Discussed with patient that it is a process where a patients current condition and prognosis are reviewed, their wishes for information regarding their illness are elicited, and likely medical dilemmas are presented and options discussed.Health care proxy form done. The form can be amended as needed, reviewed yearly and make changes as needed Orders: Orders Lipid Panel 07/03/24 E66.9 - Obesity, unspecified, Z00.01 - Encounter for general adult medical examination with abnormal findings, Z13.1 - Encounter for screening for diabetes mellitus, Z53.20 - Procedure and treatment not carried out because of patient's decision for unspecified reasons Vitamin D 25-OH Total 07/03/24 E66.9 - Obesity, unspecified, Z00.01 - Encounter for general adult medical examination with abnormal findings, Z13.1 - Encounter for screening for diabetes mellitus, Z53.20 - Procedure and treatment not carried out because of patient's decision for unspecified reasons Basic Metabolic Panel Fasting 07/03/24 E66.9 - Obesity, unspecified, Z00.01 - Encounter for general adult medical examination with abnormal findings, Z13.1 - Encounter for screening for diabetes mellitus, Z53.20 - Procedure and treatment not carried out because of patient's decision for unspecified reasons
== END 2024-07-03 15:06 | disposition home or self-care (01) ==
PROVIDERS: PCP Internal Medicine; Visit Provider Internal Medicine
DX: Z00.00 Encounter for general adult medical examination without abnormal findings (principal); E66.9 Obesity, unspecified; Z71.89 Other specified counseling; Z68.34 Body mass index [BMI] 34.0-34.9, adult

== ENCOUNTER → 2024-07-03 14:11 | Outpatient (BNVA) | payer OTHER, SELFPAY | PROVIDERS: PCP Internal Medicine; Visit Provider Internal Medicine | DX: Z00.01 Encounter for general adult medical examination with abnormal findings (principal); E66.9 Obesity, unspecified; Z68.34 Body mass index [BMI] 34.0-34.9, adult; Z71.89 Other specified counseling | CPT/HCPCS: 96127 ==

== ENCOUNTER 2024-08-14 12:18 | Outpatient (REF) | payer OTHER, SELFPAY ==
--- OUTSIDE RECORDS SUMMARY | 2024-08-14 12:31 | XMS_ITS | Data Portability ---
Author Organization [facility], [address] Address [address] [place] [address] Assessment No assessment recorded. Plan of Treatment Reminders Order Date Submit Date Provider Last Modified By Organization Details Last Modified Time Details Appointments None recorded. Lab rapid strep group A, throat 2021 [place] [address] [facility] [place], [address] [place] [address], [phone], 10:45:53 culture, respiratory 2021 [place] [facility], [address] [place] [address], [place], [address], 2 16:06:28 rapid flu (A+B) 2021 [place] [address] [facility] [place], [address] [place] [address], [phone], 10:45:53 rapid SARS CoV 2 Ag, QL IA, respiratory specimen 2021 [place] [address] [facility], [address] [place] [address], [phone], 10:45:53 Referral None recorded. Procedures None recorded. Surgeries None recorded. Imaging None recorded. Medication Orders amoxicillin 500 mg capsule 2021 [place] [id number], [address] [facility] [place], [address], 10:52:34 Patient TargetsNo targets recorded. Patient Instructions Encounter Date Encounter Id Patient Instructions Last Modified By Organization Details Last Modified Time 06/28/2022 [id number] sore throat: car e instructions [email or web address] Not available 06/28/2022 10:45:53 [email or web address] Not available 06/28/2022 10:46:54 Reason for Referral None Reported. Results Created Date Observation Date Name Description Value Unit Range Abnormal Flag Note LastModifiedBy Organization Detail LastModifiedTime 04/28/20 22 07/03/2022 UPPER RESPI RATOR Y CULTU RE upper respiratory culture FINAL REPORT Not Available [facility] ([facility]) [address] [place], [address], 07/03/2022 14:06:26 04/28/20 22 07/03/2022 UPPER RESPI RATOR Y CULTU RE result 1 COMMEN T Routi ne respi rator y dejon Not Available [facility] ([facility]) [address] [place], [address], 07/03/2022 14:06:26 06/28/20 22 06/28/2022 rapid SARS CoV 2 Ag, QL IA, respi rator y speci men Unknown Analyte Normal =Negat deonte Not Available gabi salcedo [address] [place], [address], 06/28/2022 10:27:41 06/28/20 22 06/28/2022 rapid SARS CoV 2 Ag, QL IA, respi rator y speci men Unknown Analyte negati ve Not Available gabi salcedo [address] [place], [address], 06/28/2022 10:27:41 06/28/20 22 06/28/2022 rapid flu (A+B) Unknown Analyte Normal = Negati ve Not Available gabi [address] [place], [address], 06/28/2022 10:27:37 06/28/20 22 06/28/2022 rapid flu (A+B) Unknown Analyte negati ve Not Available [address] [place] [address] [place], [address], 06/28/2022 10:27:37 06/28/20 22 06/28/2022 rapid flu (A+B) Unknown Analyte Normal = Negati ve Not Available [address] [place] [address], [place], [address], 06/28/2022 10:27:37 06/28/20 22 06/28/2022 rapid flu (A+B) Unknown Analyte negati ve Not Available [address] [place] [address] [place], [address], 06/28/2022 10:27:37 06/28/20 22 06/28/2022 rapid strep group A, throa t Unknown Analyte Normal = Negati ve Not Available [address] [place] [address] [place], [address], 06/28/2022 10:25:38 06/28/20 22 06/28/2022 rapid strep group A, throa t Unknown Analyte negati ve Not Available [address] [place] [address] [place], [address], 06/28/2022 10:25:38 Result Notes None recorded. Medical Equipment None Reported. Allergies No known drug allergies Medications Name Sig Start Date Stop Date Status Note LastModified by Organization Details LastModified Time amoxicillin 500 mg capsule Take 1 capsule twice a day by oral route for 10 days. 022 active Not Available Not Available Not Avai lable Vitals Date Recorded Body height Body mass index (BMI) Body weight Oxygen saturation Oxygen saturation in Arterial blood by Pulse oximetry Heart rate Respiratory rate Body temperature Systolic blood pressure Diastolic blood pressure Provider Name and Address Organization Details Last Updated DateTime 2 162.56 cm 29.5 kg/m2 43521.8 9 g 100 % 100 % 65 /min 18 /min 98 [degF] 111 mm[Hg] 78 mm[Hg] Liana Alan PA - [facility] 2 10:26:46 Social History Question Answer Notes LastModified by Organizat ion Details LastModified Time Tobacco Smoking Status Never Smoker Liana dorantes PA - [facility] 06/28/2022 10:27:30 What Is Your Level Of Alcohol Consumption? None Information not available 06/28/2022 Have You Had Direct Contact, Or Contact During Intimacy, With Monkeypox Rash, Scabs, Or Body Fluids From A Person With Monkeypox? No Information not available 06/28/2022 Do You Use Any Illicit Or Recreational Drugs? No Information not available 06/28/2022 Have You Recently Traveled Abroad? No Information not available 06/28/2022 Do You Or Have You Ever Used Any Other Forms Of Tobacco Or Nicotine? No Information not available 06/28/2022 Sex: Unknown Functional Status None recorded. Mental Status None recorded. Family History Relationship Description Onset Age of this Age Resolved Age Notes LastModified by Organization Details LastModified Time Father No current problems or disability Not available 06/28 10:27:20 Mother No current problems or disability Not available 06/28 10:27:20 Medical History No medical history recorded. Gynecological HistoryNo gynecological history recorded. Obstetrics History GPAL:G 0 P 0 0 0 0 Past Encounters Encounter ID Performer Location Encounter Start Date Encounter Closed Date Diagnosis/Indication Diagnosis SNOMED-CT Code Diagnosis ICD10 Code Diagnosis Note [id number] [address] [address] 11/14/2020 14:21:14 11/14/2020 16:41:18 [id number] [address] [address] 11/23/2020 16:50:01 11/23/2020 17:40:16 [id number] TYLER GONZALEZ [address] [facility] [address] [place] [address] 06/28/2022 08:30:34 06/28/2022 10:55:10 Acute upper respiratory infection 28655274 J06.9 Pain in throat 610160476 R07.0 Acute tonsillitis 081213 08 J03.90 Health Concerns Section Related Observation LastModified by Organization Detai ls LastModified Time None Recorded Concern Status LastModified by Organization Details LastModified Time None Recorded Advance Directives Directive None Recorded Payers Encounter Date Sequence Insurance Name Policy Number Policy Gonzalez Covered Member ID Gonzalez Member ID Guarantor Name 11/14/2020 1 [facility] [place] [id number] Jamee Riley Colon [id number] Jamee Riley 11/23/2020 1 [facility] [place] [place] [id number] Jamee Riley Colon [id number] Jamee Riley 06/28/2022 1 [facility] [place] [place] [id number] Jamee Riley Colon [id number] Jamee Riley Notes Date Note Type Note Provider Name and Address Organization Details Recorded Time 06/28/2022 text/html Jamee is a [age] yo F here for evaluation of body aches, headache, and congestion that started yesterday. COVID negative at home. Here for rapid covid, flu, strep testing. No fevers, chills, sweats, SOB, CP, wheezing, dizziness. Has hx of frequent strep, had strep last year. About 1x per year. States sx feel similar to prior strep infections. TYLER PIZANO [address] [place], [address], PA - [facility] 06/28/2022 10:54:38 OBGyn Episode No OBEpisode recorded.
[2024-08-14 16:38] LABS: Anion Gap 12 (12-20); Blood Urea Nitrogen 10 mg/dL (9-16); Calcium 9.5 mg/dL (8.4-10.2); Carbon Dioxide 24 mmol/L (22-29); Chloride 108 mmol/L (96-108); Cholesterol 148 mg/dL (<200); Estimated Glomerular Filt Rate > 60; Glucose Fasting 86 mg/dL (60-99); HDL Cholesterol 50 mg/dL (>40); LDL Cholesterol Calculated 64 mg/dL (<100); Potassium 3.8 mmol/L (3.3-5.1); Sodium 140 mmol/L (135-145); Triglycerides 174 mg/dL (<150)
[2024-08-14 16:48] LABS: Vitamin D 25-OH Total 45.3 ng/mL (>30)
== END 2024-08-14 12:19 | disposition home or self-care (01) ==
LOC: HO.HMGCLDS 12:18
PROVIDERS: PCP Internal Medicine; Visit Provider Internal Medicine
DX: Z00.01 Encounter for general adult medical examination with abnormal findings (principal); Z53.20 Procedure and treatment not carried out because of patient's decision for unspecified reasons; Z13.1 Encounter for screening for diabetes mellitus; E66.9 Obesity, unspecified
CPT/HCPCS: 36415; 80048; 80061; 82306